=== PATIENT | male | born 1955 | race Caucasian/White ===

== ENCOUNTER 2018-12-12 06:03 | Inpatient (IN) ==
[2018-12-08 10:32] LABS: Basophils % 0.6 % (0.0-0.8); Eosinophils # 0.2 10*3/uL (0.0-0.87); Eosinophils % 3.4 % (0.00-10.9); Hematocrit 47.4 VOL% (42.0-52.0); Hemoglobin 16.6 GM/DL (14.0-18.0); Immature Granulocytes % 0.4 %; Immature Granulocytes Absolute 0.02 #; Lymphocytes # 1.4 10*3/uL (1.4-4.0); Lymphocytes % 26.3 % (21.2-54.2); Mean Corpuscular Volume 91.9 FL (87-102); Mean Platelet Volume 9.5 FL (9.6-12.0); Monocytes % 7.6 % (1.7-12.7); Neutrophils % 61.7 % (38.7-73.9); Platelet Count 135 T/CUMM (130-400); Red Blood Count 5.16 MC/CUMM (3.8-5.5); Red Cell Distribution Width 13.1 % (9.3-17.3); White Blood Count 5.3 T/CUMM (4-12)
[2018-12-08 10:47] LABS: Calcium 9.3 MG/DL (8.5-10.1); Osmolality,Calculated 281.3 MOS/KG (273-304)
[2018-12-12] MEDS ORDERED: LIDOCAINE 1%/EPI INJ 20 ML VIAL ONE (06:19)
[2018-12-12] MEDS ORDERED: CLINDAMYCIN INJ 900 MG in PREMIX 1 EACH IV ONE (06:30)
[2018-12-12] MEDS ORDERED: DEXAMETHASONE 4 MG/1 ML VIAL IV ONE (07:00)
[2018-12-12] MEDS: LACTATED RINGERS 1,000 ML IV SCH ×2 (07:20→10:01)
[2018-12-12] MEDS ORDERED: CLINDAMYCIN INJ 50 ML IV ONE (07:25)
[2018-12-12] MEDS ORDERED: DIAZEPAM 5 MG TABLET PO ONE (07:59)
[2018-12-12] MEDS ORDERED: FAMOTIDINE 20 MG TABLET PO ONE (07:59)
[2018-12-12] MEDS ORDERED: DIAZEPAM 5 MG TABLET ONE (08:10)
[2018-12-12] MEDS ORDERED: FAMOTIDINE 20 MG TABLET ONE (08:10)
[2018-12-12] MEDS ORDERED: CHLORHEXIDINE 0.12% ORAL RINSE 60 ML BOTTLE SWISH/SPIT ONE (08:21)
[2018-12-12] MEDS: CHLORHEXIDINE 0.12% ORAL RINSE 60 ML BOTTLE SWISH/SPIT SCH ×4 (08:24→21:38)
[2018-12-12 09:54] LABS: Apearance,Urine CLEAR (Clear); Bilirubin,Urine Negative (Negative); Blood, Urine Negative (Negative); Glucose,Urine (UA) Negative (Negative); Ketones,Urine Negative (Negative); Nitrite,Urine Negative (Negative); Protein,Urine Negative; RBC,Urine 1 /HPF (0-4); Squamous Epithelial Cell,Urine Occasional /HPF (0-10); Urine Color Straw (Yellow); Urine Specific Gravity 1.005 (1.001-1.035); Urine Urobilinogen < 2.0 EU/DL (0.2-1.0); WBC,Urine 1 /HPF (0-6)
[2018-12-12] MEDS ORDERED: diphenhydrAMINE 50 MG/1 ML VIAL IV PRN (12:54)
[2018-12-12] MEDS ORDERED: ONDANSETRON 4 MG/2 ML VIAL IV PRN ×2 (12:54→13:17)
[2018-12-12] MEDS ORDERED: IBUPROFEN 100 MG/5 ML UDCUP PO PRN (12:57)
[2018-12-12] MEDS ORDERED: LACTATED RINGERS 1,000 ML IV SCH (13:00)
[2018-12-12] MEDS ORDERED: DIAZEPAM 5 MG TABLET PO PRN (13:00)
[2018-12-12] MEDS ORDERED: DEXAMETHASONE 4 MG/1 ML VIAL IV SCH (13:00)
[2018-12-12] MEDS ORDERED: SEVOFLURANE 1 UNIT/15 MINUTE INH ONE (13:05)
[2018-12-12] MEDS ORDERED: PROPOFOL 200 MG/20 ML VIAL IV ONE (13:05)
[2018-12-12] MEDS ORDERED: KETAMINE 500 MG/10 ML VIAL ONE (13:06)
[2018-12-12] MEDS ORDERED: MIDAZOLAM 2 MG/2 ML VIAL ONE ×2 (13:06→13:08)
[2018-12-12] MEDS ORDERED: PHENYLEPHRINE 10 MG/1 ML VIAL IV ONE (13:07)
[2018-12-12] MEDS ORDERED: SUCCINYLCHOLINE 200 MG/10 ML VIAL ONE (13:07)
[2018-12-12] MEDS ORDERED: fentaNYL 100 MCG/2 ML VIAL ONE ×4 (13:07→13:10)
[2018-12-12] MEDS ORDERED: MINERAL OIL/PETROLATUM OPH OINT 3.5 GM TUBE ONE (13:07)
[2018-12-12] MEDS ORDERED: ROCURONIUM 100 MG/10 ML VIAL IV ONE (13:08)
[2018-12-12] MEDS ORDERED: LACTATED RINGERS 2,000 ML IV ONE (13:08)
[2018-12-12] MEDS ORDERED: SODIUM CHLORIDE 0.9% 250 ML IV ONE (13:08)
[2018-12-12] MEDS ORDERED: DEXAMETHASONE 4 MG/1 ML VIAL ONE (13:09)
[2018-12-12] MEDS: HYDROmorphone 2 MG/1 ML VIAL IV PRN ×2 (13:18→13:23)
[2018-12-12 13:59] VITALS: BP 149/95
[2018-12-12] MEDS: CLINDAMYCIN 300 MG CAPSULE PO SCH ×2 (15:48→21:37)
[2018-12-12] MEDS: MORPHINE 4 MG/1 ML VIAL IV PRN ×2 (15:49→19:32)
[2018-12-12] MEDS: KETOROLAC 30 MG/1 ML VIAL IV PRN ×2 (15:51→23:47)
[2018-12-12] MEDS: HYDROcod/ACETAMIN 7.5-325 MG/15 ML UDCUP PO PRN ×2 (15:56→21:36)
[2018-12-12] MEDS: DEXAMETHASONE 4 MG/1 ML VIAL IV SCH (18:28)
[2018-12-13] MEDS: DEXAMETHASONE 4 MG/1 ML VIAL IV SCH ×2 (00:14→09:51)
[2018-12-13] MEDS: HYDROmorphone PCA 30 MG/30 ML SYRINGE IV SCH ×2 (07:15→12:20)
[2018-12-13] MEDS: HYDROcod/ACETAMIN 7.5-325 MG/15 ML UDCUP PO PRN (07:57)
[2018-12-13] MEDS ORDERED: LOSARTAN 50 MG TABLET PO SCH (09:00)
[2018-12-13] MEDS ORDERED: amLODIPine 10 MG TABLET PO SCH (09:00)
[2018-12-13] MEDS ORDERED: ATORVASTATIN 20 MG TABLET PO SCH (09:00)
[2018-12-13] MEDS ORDERED: MULTIVITAMIN (CENTRUM) TABLET PO SCH (09:00)
[2018-12-13] MEDS: CLINDAMYCIN 300 MG CAPSULE PO SCH (09:50)
[2018-12-13] MEDS: CHLORHEXIDINE 0.12% ORAL RINSE 60 ML BOTTLE SWISH/SPIT SCH ×2 (09:51→09:52)
[2018-12-13] MEDS ORDERED: PNEUMOCOCCAL VACCINE (23 VALENT) 0.5 ML VIAL IM ONE (14:00)
== END 2018-12-13 13:09 | disposition home or self-care (01) | DRG 129 ==
LOC: N.PREADM 06:03 → N.SDSINP 06:04 → N.ICU 12:54
PROVIDERS: ADMIT Otolaryngology; ATTEND Otolaryngology